=== PATIENT | female | born 1955 | race Caucasian/White ===

== ENCOUNTER 2016-12-24 12:12 | Inpatient (IN) ==
[2016-12-24] MEDS ORDERED: CATAPRES PO PRN (15:55)
[2016-12-24] MEDS ORDERED: SODIUM CHLORIDE 0.9% INJ SCH (16:00)
--- NOTE | 2016-12-24 16:19 | EKG Report ---
Test Performed on : 12/24/2016 3:50:00 PM Test Reason : chest pain Blood Pressure : / mmHG Vent. Rate : 058 BPM Atrial Rate : 058 BPM P-R Int : 166 ms QRS Dur : 096 ms QT Int : 444 ms P-R-T Axes : 062 065 055 degrees QTc Int : 435 ms Sinus bradycardia. Otherwise normal ECG When compared with ECG of 10-JUN-2011 22:10, T wave amplitude has decreased in Anterior leads Confirmed by Jayjay Ahuja MD ([id number]) on 12/25/2016 8:26:24 PM
[2016-12-24] MEDS: LOVENOX SUBQ SCH (16:20)
[2016-12-24] MEDS: NITROGLYCERIN TOP SCH ×2 (16:20→22:06)
[2016-12-24] MEDS: PROTONIX IV SCH (16:20)
[2016-12-24 16:25] LABS: MANUAL DIFF NEEDED? NO
[2016-12-24 16:34] LABS: BASO% 0.7 % (0.0-0.8); EOS# 0.58 X1000 (0.0-0.7); EOS% 5.9 % (0.0-10.0); HEMATOCRIT 44.5 % (37.0-47.0); HEMOGLOBIN 14.8 g/dL (12.0-16.0); LYMPH# 2.85 X1000 (1.2-3.4); LYMPH% 29.1 % (20.5-51.1); MCH 30.4 PG (27-31); MCHC 33.3 g/dL (33-37); MCV 91.4 FL (81-99); MONO# 0.67 X1000 (0.11-0.59); MONO% 6.9 % (1.7-9.3); MPV 9.9 FL (7.4-10.4); NEUT% 57.4 % (42.2-75.2); PLT 424 X1000 (130-400); RBC 4.87 XMIL (4.2-5.4)
[2016-12-24 16:43] LABS: INR 1.02; PROTIME 10.7 Seconds (9.2-11.7)
[2016-12-24 16:47] LABS: AGAP 14; ALBUMIN 4.1 g/dL (3.5-5.0); ALKALINE PHOSPHATASE 88 U/L (32-104); BUN 15 mg/dL (8-22); CALCIUM 9.1 mg/dL (8.8-10.2); CHLORIDE 102 mmol/L (98-107); CK PROFILE 65 U/L (24-173); COSMO 277; GOT 14 U/L (10-30); GPT 14 U/L (10-36); POTASSIUM 3.9 mmol/L (3.5-5.1); SODIUM 139 mmol/L (136-145); TCO2 23 mmol/L (25-35); TOTAL BILIRUBIN 0.31 mg/dL (0.20-1.00); TOTAL PROTEIN 6.7 g/dL (6.3-8.3)
[2016-12-24 16:55] LABS: HEMOGLOBIN A1C 5.2 % (4.8-6.0)
--- NOTE | 2016-12-24 17:13 | HISTORY AND PHYSICAL ---
CHIEF COMPLAINT: Shortness of breath and chest pain for the last few weeks. HISTORY OF PRESENT ILLNESS: She is a 61-year-old white female, who came to the office with 1-week history of off and on exertional chest pain going to the neck associated with shortness of breath. No PND. No swelling of feet. She has strong risk factors of underlying coronary artery disease. Resting EKG in my office did not show any injury or ischemia. Admitted to the hospital for observation rule out FL and rule out ischemic heart disease. PAST MEDICAL HISTORY: Abdominal aneurysm 2.5 cm, diverticulosis, hypertension, hyperlipidemia, reactive thrombocytosis. Negative workup. Chronic back pain due to herniated disk. PAST SURGICAL HISTORY: Hysterectomy, right forearm fracture. MEDICINES: 1. Hydralazine 10 mg daily. 2. Simvastatin 40 mg daily. 3. Vitamin B 12 1000 mcg daily. ALLERGIES: Lisinopril, codeine. SOCIAL HISTORY: , 2 kids, lives in [place]. Smoking half a pack a day. No alcohol. No drug abuse. FAMILY HISTORY: Father of heart failure at 80. Mom of stroke from aneurysm. Two brothers had massive heart attacks. REVIEW OF SYSTEMS: HEENT: No headache. No vision problem. No earache. No sore throat. Neck: No goiter. No lymphadenopathy. No bruit. Cardiopulmonary: Chest pain as described. Exertional. No shortness of breath, PND, orthopnea. GI: No nausea, vomiting, abdominal pain. : No history of hesitancy, frequency, dysuria. No swelling of feet. No joint pains. Neurologic: Chronic back pain. No neurological symptoms or weakness. PHYSICAL EXAMINATION: VITAL SIGNS: Blood pressure is 185/83. Pulse is 78, afebrile and 140 pounds. HEENT EXAM: Atraumatic, normocephalic. Pupils equal, react to light. TMs are normal. Nose and throat within normal limits. NECK: Supple. No lymphadenopathy. No goiter. CHEST: Bilateral air entry. HEART: Sounds are regular. No murmur. Mild reproducible pain, but not significant. ABDOMEN: Belly is soft, nontender. Good bowel sounds. No masses palpable. EXTREMITIES: No peripheral edema, cyanosis. NEUROLOGICAL: No obvious neurological deficits. INVESTIGATIONS: Twelve lead EKG: Nothing acute. Rest of the labs are pending. ASSESSMENT AND PLAN: 1. A 61-year-old white female admitted to the hospital with chest pain, somewhat typical features in light of risk factors, smoking and family history, admitted to the hospital for rule out myocardial infarction and rule out ischemic heart disease. Plan is aspirin, nitroglycerin paste and beta blockers. 2. Follow up on pending labs. 3. Deep vein thrombosis and gastrointestinal prophylaxis with Lovenox and Protonix respectively. 4. Reconcile home medications. Follow up on the pending labs. If cardiac enzymes were negative, we will schedule for the Lexiscan test in the morning. cc: Joe Smalls MD
--- NOTE | 2016-12-24 18:33 | Diag Imaging Result Doc PS360 ---
EXAM: CHEST-2 VIEWS - 12/24/2016 HISTORY: SOB TECHNIQUE: Chest two views COMPARISON: None FINDINGS: Heart size appears within normal limits. There are possibly mild COPD changes. There is mild linear atelectasis or scarring at the lateral left base. There is an apparent tiny granuloma from old granulomatous disease at the right midlung. There is a small triangular opacity at the right apex which may be artifact. There is no consolidation, pleural effusion, or pneumothorax identified. IMPRESSION: Possible mild COPD changes. Mild linear atelectasis or scarring at lateral left base. Small triangular opacity at right apex, which may be artifactual. Electronically signed by Davey Stone 12/24/2016 6:30 PM
[2016-12-24] MEDS: TYLENOL PO PRN (19:25)
[2016-12-24] MEDS ORDERED: ZOCOR PO SCH (21:00)
[2016-12-25] MEDS: NITROGLYCERIN TOP SCH ×3 (05:00→19:36)
[2016-12-25] MEDS: TYLENOL PO PRN (06:53)
[2016-12-25 07:23] LABS: HDL 39 mg/dL (45-65); LDL 125 mg/dL; TRIGLYCERIDES 221 mg/dL (35-135); VLDL 44 mg/dL
[2016-12-25] MEDS ORDERED: LEXISCAN ONE (08:47)
[2016-12-25] MEDS ORDERED: APRESOLINE PO SCH (09:00)
[2016-12-25] MEDS ORDERED: ASPIRIN PO SCH (09:00)
--- NOTE | 2016-12-25 10:44 | ECHO REPORT ---
ORDER DATE: 12/24/2016 INDICATION: Embolism, hypertension. FINDINGS: 1. Right atrium is normal in size. 2. Mild tricuspid regurgitation. Insufficient data to estimate RV systolic pressure. 3. Normal RV size and systolic function. 4. Trace pulmonic insufficiency. 5. Normal left atrial size at 3.4 cm. 6. No mitral valve prolapse. No significant mitral regurgitation. 7. Normal LV size, end-diastolic dimension of 3.5. Normal wall thicknesses with a posterior and interventricular septal thickness of 1.1 cm each. Normal LV systolic function. Calculated EF 67%. 8. The aortic valve opens well. No evidence of stenosis or insufficiency. 9. The aorta appears normal in visualized segments. 10. No pericardial effusion seen. cc: MD Joe Lange MD
[2016-12-25 15:47] VITALS: BP 158/68
[2016-12-25] MEDS: LOVENOX SUBQ SCH (16:00)
[2016-12-25] MEDS: PROTONIX IV SCH (16:00)
--- NOTE | 2016-12-25 19:34 | Diag Imaging Result Document ---
PROCEDURE NAME: MYOCARDIAL PERF SCAN, STR/REST - 12/25/2016 STUDY: Rest-stress Lexiscan myocardial perfusion study. INDICATION: Chest pain. REQUESTING PHYSICIAN: Dr. Smalls. DESCRIPTION: The patient came into the Nuclear Lab, received a rest injection of technetium 99 sestamibi 10.5 millicuries. Multiple tomographic views of the cardiac structure were obtained at rest. Subsequently the patient underwent infusion of Lexiscan 0.4 mg per protocol. At peak infusion, injected with technetium 99 sestamibi 31 millicuries. Multiple tomographic views of the cardiac structure were obtained following the completion of the protocol. SUMMARY OF ELECTROCARDIOGRAPHIC PORTION OF STUDY: Resting ECG shows sinus rhythm, rate 59 beats per minute. Resting blood pressure 148/67. Resting ECG shows sinus rhythm without any significant ST-T abnormality. During infusion of Lexiscan, the heart rate increased to 84 beats per minute. Blood pressure dropped to 137/69. The patient reported mild chest tightness that resolved by itself. No shortness of breath or palpitations. No significant arrhythmias were noted. No ischemic changes were noted. IMPRESSION: In summary, the electrocardiographic response to Lexiscan is normal. SUMMARY OF MYOCARDIAL PERFUSION PORTION OF STUDY: Poststress tomographic views of the left ventricle showed normal homogeneous distribution of radiotracer throughout the entire left ventricular myocardium. There is no evidence of any postexercise defect. Rest images show normal perfusion. Polar plots reveals the same. No evidence of inducible ischemia or myocardial scar. Gated SPECT showed normal left ventricular systolic function. Ejection fraction estimated at 89% with normal ventricular volumes. No wall motion abnormality. Lung-heart ratio is normal. TID is normal. IMPRESSION: In summary, this study showed: 1. Normal electrocardiographic response to Lexiscan infusion. 2. Normal poststress myocardial perfusion scan. No scintigraphic evidence of pharmacologically induced myocardial ischemia. 3. Normal left ventricular systolic function. Ejection fraction estimated at 89% with normal ventricular volumes. No wall motion abnormality. This study represents low risk for ischemic events. cc: MD Joe Leos MD
--- NOTE | 2016-12-26 14:55 | DISCHARGE SUMMARY ---
ADMISSION DATE: 12/24/2016 DISCHARGE DATE: 12/25/2016 DISCHARGING DIAGNOSIS: Chest pain, atypical. Stress test was negative. SECONDARY DIAGNOSES: 1. Hyperlipidemia. 2. Hypertension. 3. Tobacco abuse. 4. Vitamin B12 deficiency. 5. Diverticulosis. PROCEDURES: 1. Cardiac perfusion scan is negative for reversible ischemia. 2. Echocardiography findings are normal LV cavity size, LV systolic function 60%, no significant valvular heart disease seen. BRIEF HISTORY: Please see the H and P that was done on 12/24/2016. In brief, she is a 61-year- old white female, admitted to the hospital with chest pain, exertional and somewhat atypical features as well. Significant family history of heart disease and smoking. HOSPITAL COURSE: Resting EKG is normal. The patient was ruled out for SC by serial cardiac enzymes. Further workup findings were reassuring. Continue to maintain the primary prevention for atherosclerotic cardiovascular disease in the future. LABORATORY DATA: CBC is normal. PT/INR is normal. SMA-7 was normal. A1c 5.2. Liver function tests were normal. Cardiac enzymes were normal. Triglycerides 221, cholesterol 208, HDL 39. DISCHARGE MEDICATIONS: Hydralazine 10 mg daily, simvastatin 40 daily, Prilosec 40 daily, aspirin 81 mg daily. DISCHARGE INSTRUCTIONS: Quit smoking. Follow up in my office in 2 weeks. cc: Joe Smalls MD
== END 2016-12-25 21:30 | disposition home or self-care (01) ==
LOC: DIRADM 12:12 → 3N 12:58
PROVIDERS: ADMIT Internal Medicine; ATTEND Internal Medicine

== ENCOUNTER 2018-07-28 08:41 | Observation (INO) ==
--- NOTE | 2018-07-28 09:11 | EKG Report ---
Test Performed on : 07/28/2018 08:42:42 AM Test Reason : chest pain Blood Pressure : / mmHG Vent. Rate : 073 BPM Atrial Rate : 073 BPM P-R Int : 154 ms QRS Dur : 096 ms QT Int : 402 ms P-R-T Axes : 061 074 056 degrees QTc Int : 442 ms Normal sinus rhythm. Normal ECG When compared with ECG of 24-DEC-2016 15:50, No significant change was found Unconfirmed Result
[2018-07-28] MEDS ORDERED: NITROGLYCERIN TOP ONE (09:17)
--- NOTE | 2018-07-28 09:17 | PROVIDER DOCUMENTATION ---
HPI-Chest Pain - General Chief Complaint: Chest Pain Stated Complaint: CP Time Seen by Provider: 07/28/18 08:46 Source: patient Allergies/Adverse Reactions: Patient Allergies Allergy/AdvReac Type Severity Reaction Status Date / Time codeine Allergy pass out Verified 07/28/18 09:01 lisinopril Allergy Unknown Verified 07/28/18 09:01 Home Medications: Home Medication List Medication Instructions Recorded Confirmed Last Taken Type Hydralazine [Apresoline] 50 mg PO BID 06/30/14 07/28/18 12/23/16 21:00 History SIMVAstatin [Zocor] 40 mg PO QHS 06/30/14 07/28/18 12/23/16 21:00 History Aspirin [Adult Low Dose Aspirin EC] 81 mg PO DAILY #30 tablet. 12/25/16 07/28/18 Unknown Rx Omeprazole [Prilosec] 40 mg PO DAILY #30 capsule. 12/25/16 07/28/18 Unknown Rx Cilostazol 50 mg PO BID 07/28/18 07/28/18 Unknown History - History of Present Illness-CP Nature of Presenting Problem: pt says has had intermittent palpitations, KHOURY, and bilat jaw pain for sev mos, This am, ~0630, as was getting grandchild ready for school, has pressure ant CP, that rad to L shoulder, arm, jaws, assoc with SOB, nausea. Nothing made better nor worse. Also has hx of "bulge" in abd aorta. Location: reports: substernal Chest Pain Radiation: reports: jaw, arms Quality of Pain: reports: aching, pressure Onset/Duration: abrupt Timing: improving Context/Activities at Onset: reports: light activity Modifying Factors: improves with: nothing Nitro Today/Relief: no nitro taken today Aspirin Treatment Today: provided by EMS Similar Symptoms Previously?: No (not the CP) Recently Seen Here or By Another Healthcare Provider: No (saw PCP last week) Review of Systems - Adult - REVIEW OF SYSTEMS - ADULT Constitutional: reports: no symptoms reported Eyes: reports: no symptoms reported Ears, Nose, Mouth & Throat: reports: no symptoms reported Cardiovascular: reports: see HPI Respiratory: reports: see HPI Gastrointestinal: reports: see HPI Musculoskeletal: reports: no symptoms reported Integumentary: reports: no symptoms reported Neurological: reports: no symptoms reported Psychiatric: reports: no symptoms reported Endocrine: reports: no symptoms reported Hematologic/Lymphatic: reports: no symptoms reported Allergic/Immunologic: reports: no symptoms reported Past History - Adult - PAST MEDICAL HISTORY-ADULT Review of Records: reports: Old Records Reviewed, Medications Reviewed Major Childhood Illnesses: reports: denies history Cardiovascular: reports: HTN, hyperlipidemia Respiratory: reports: COPD Gastrointestinal: reports: denies history Genitourinary: reports: denies history Musculoskeletal: reports: denies history Neurological: reports: denies history Psychiatric: reports: denies history Endocrine/Immune: reports: denies history Additional History: mild bulge in distal abd aorta Physical Exam-General - PHYSICAL EXAM-ADULT Initial Vital Signs Reviewed: Yes - CONSTITUTIONAL General Appearance: appears well, alert, mild distress - EYES Eyes: PERRL/EOMI, pink conjunctivae - HEAD, EARS, NOSE, MOUTH & THROAT HENMT: normocephalic/atraumatic, moist mucous membranes, normal ENT inspection, pharynx normal - RESPIRATORY Respiratory: lungs clear, normal breath sounds, no respiratory distress, no accessory muscle use - CARDIOVASCULAR Cardiovascular: regular rate, rhythm, no edema, no gallop, no murmur - GASTROINTESTINAL (ABDOMEN) Abdominal Exam: non tender, soft - MUSCULOSKELETAL Back Exam: normal inspection, no CVA tenderness, no vertebral tenderness Extremity: normal range of motion, non-tender, normal inspection, no pedal edema - SKIN Integumentary: normal color, normal turgor, warm/dry - NEUROLOGIC Neurologic: volunteer coordinator II-XII nml as tested, grossly normal, no motor/sensory deficits - PSYCHIATRIC Psych/Mental Status: normal mood/affect, normal thought content, normal thought process, oriented x 3 - HEART Score HEART Score: History: Highly Suspicious HEART Score: ECG: Normal HEART Score: Age: 45-65 Years HEART Score: Risk Factors for Atherosclerotic Disease: > or = 3 Risk Factors or History of Atherosclerotic Disease HEART Score: Troponin: < or = Normal Limit Total HEART Score:: 5 Progress - PLAN OF CARE/RESULTS Progress/Plan/Lab Results: Vital Signs - 8 hr 07/28/18 08:50 07/28/18 08:51 07/28/18 08:53 Temperature 97.7 F Pulse Rate 72 83 73 Respiratory Rate 18 18 16 Blood Pressure 160/89 160/89 O2 Sat by Pulse Oximetry 95 96 96 07/28/18 09:00 07/28/18 09:10 07/28/18 09:25 Temperature Pulse Rate 75 79 72 Respiratory Rate 20 14 23 Blood Pressure O2 Sat by Pulse Oximetry 96 96 96 07/28/18 09:26 07/28/18 09:30 07/28/18 09:40 Temperature Pulse Rate 72 70 76 Respiratory Rate 20 16 18 Blood Pressure 164/80 O2 Sat by Pulse Oximetry 97 96 95 07/28/18 09:50 07/28/18 10:00 07/28/18 10:10 Temperature Pulse Rate 91 H 69 69 Respiratory Rate 20 24 18 Blood Pressure O2 Sat by Pulse Oximetry 94 L 95 95 07/28/18 10:20 07/28/18 10:25 07/28/18 10:30 Temperature 97.5 F L Pulse Rate 70 68 72 Respiratory Rate 15 22 21 Blood Pressure 147/77 O2 Sat by Pulse Oximetry 95 94 L 93 L 07/28/18 10:40 07/28/18 11:47 07/28/18 11:50 Temperature Pulse Rate 72 91 H 69 Respiratory Rate 18 24 20 Blood Pressure O2 Sat by Pulse Oximetry 95 97 95 07/28/18 12:00 Temperature Pulse Rate 75 Respiratory Rate 15 Blood Pressure O2 Sat by Pulse Oximetry 96 Laboratory Results - last 24 hr 07/28/18 07/28/18 07/28/18 08:59 08:59 08:59 WBC 10.43 RBC 4.90 Hgb 14.4 Hct 43.3 MCV 88.4 MCH 29.4 MCHC 33.3 RDW Std Deviation 13.7 Plt Count 452 H MPV 9.7 Immature Gran % (Auto) 0.3 Neut % (Auto) 66.6 Lymph % (Auto) 19.9 L [place] % (Auto) 6.2 Eos % (Auto) 6.1 Baso % (Auto) 0.9 H Immature Gran # (Auto) 0.03 Neut # (Auto) 6.94 H Lymph # (Auto) 2.08 Eagle # (Auto) 0.65 H Eos # (Auto) 0.64 Baso # (Auto) 0.09 PT INR PTT (Actin FS) D-Dimer, Quantitative Sodium 140 Potassium 3.9 Chloride 106 Carbon Dioxide 21 L Anion Gap 13 BUN 10 Creatinine 0.8 Estimated GFR/1.73 m2 > 60 BUN/Creatinine Ratio 13 Glucose 121 H Calculated Osmolality 280 Calcium 9.2 Total Bilirubin 0.18 L AST 11 ALT 9 L Alkaline Phosphatase 98 Creatine Kinase 77 Troponin T [id number]-Ytuayldfezc Pept 80 Total Protein 6.6 Albumin 4.0 Globulin 2.6 Albumin/Globulin Ratio 1.5 07/28/18 07/28/18 07/28/18 08:59 08:59 08:59 WBC RBC Hgb Hct MCV MCH MCHC RDW Std Deviation Plt Count MPV Immature Gran % (Auto) Neut % (Auto) Lymph % (Auto) Eagle % (Auto) Eos % (Auto) Baso % (Auto) Immature Gran # (Auto) Neut # (Auto) Lymph # (Auto) [place] # (Auto) Eos # (Auto) Baso # (Auto) PT 13.8 INR 0.98 PTT (Actin FS) 31.4 D-Dimer, Quantitative 0.85 H Sodium Potassium Chloride Carbon Dioxide Anion Gap BUN Creatinine Estimated GFR/1.73 m2 BUN/Creatinine Ratio Glucose Calculated Osmolality Calcium Total Bilirubin AST ALT Alkaline Phosphatase Creatine Kinase Troponin T 0.014 [id number]-F-Dvruhyhnuvf Pept Total Protein Albumin Globulin Albumin/Globulin Ratio Orders Category Date Time Status Cardiac Monitoring DIRECTED Care 07/28/18 09:03 Active CHEST-2 VIEWS [RAD] Stat Exams 07/28/18 09:[address] ANGIOGRM PULMONARY ARTERIES [CT] Stat Exams 07/28/18 10:12 Completed CBC WITH ELECTRONIC DIFF [HEME] Stat Lab 07/28/18 08:59 Completed CK PROFILE [SP CHEM] Stat Lab 07/28/18 08:59 Completed CK PROFILE [SP CHEM] Stat Lab 07/28/18 11:55 Received COMPREHENSIVE METABOLIC PANEL [CHEM] Stat Lab 07/28/18 08:59 Completed D-DIMER [COAG] Stat Lab 07/28/18 08:59 Completed PRO B-NATRIURETIC PEPTIDE Stat Lab 07/28/18 08:59 Completed PROTIME WITH INR [COAG] Stat Lab 07/28/18 08:59 Completed PTT [COAG] Stat Lab 07/28/18 08:59 Completed TROPONIN T Stat Lab 07/28/18 08:59 Completed TROPONIN T Stat Lab 07/28/18 11:55 Received Nitroglycerin Med 07/28/18 09:17 Discontinued 1 inch TOP NOW ONE CP/SOB/Palp >45 yrs of Age Stat Oth 07/28/18 09:03 Ordered EKG [EKG] Stat Ther 07/28/18 09:03 Draft Old records reviewed, has had cardiac W/U in 2017, and prev CT shows the aortic bulge Result Diagrams: 07/28/18 08:59 07/28/18 08:59 - EKG 1 Time of EKG reading by physician:: 08:45 EKG Read and Signed by:: Evaristo Yen EKG Interpretation (*Must complete 3 of following elements*): Normal Rate: 73 Rhythm: NSR [place]: normal QRS: normal ST Wave: normal 2 Time of EKG reading by physician:: 11:55 EKG Read and Signed by:: Evaristo Yen EKG Interpretation (*Must complete 3 of following elements*): Normal Rate: 75 Rhythm: NSR [place]: normal QRS: normal ST Wave: normal - XRAY 1 XRAY Study: Chest Impression: Abnormal XRAY Interpretation: emphysema - CONSULTS/PCP/HOSPITALIST Notification #1 *Consult/PCP/Hospitalist*: Slim Time Discussed: 11:31 Consult Disposition: Admit Departure - Departure Date of Disposition Decision: 07/28/18 Time of Disposition Decision: 09:23 DIAGNOSIS: Chest pain Disposition: ADMITTED INPATIENT 09 Certified Medical Emergency: Emergent Condition: Good Referrals and Follow-Ups: Latoya Smalls MD [Primary Care Provider] - - Critical Care Note This patient required my direct & personal management of CC.: No Attestation - Physician/ YOCASTA Attestation Patient care was provided by Advanced Practice Provider:: No The physician spent face to face time with patient:: Yes Advanced Practice Provider documentation review:: Supervising physician onsite and consulted in the evaluation and care of this patient. The physician did have a face to face encounter with the patient.
[2018-07-28 09:25] LABS: BASO# 0.09 X1000 (0.0-0.2); BASO% 0.9 % (0.0-0.8); EOS# 0.64 X1000 (0.0-0.7); EOS% 6.1 % (0.0-10.0); HEMATOCRIT 43.3 % (37.0-47.0); HEMOGLOBIN 14.4 g/dL (12.0-16.0); IMM GRAN# 0.03 X1000 (0.0-0.04); IMM GRAN% 0.3 % (0.0-0.5); LYMPH# 2.08 X1000 (1.2-3.4); LYMPH% 19.9 % (20.5-51.1); MCH 29.4 PG (27-31); MCHC 33.3 g/dL (33-37); MCV 88.4 FL (81-99); MONO# 0.65 X1000 (0.11-0.59); MONO% 6.2 % (1.7-9.3); MPV 9.7 FL (7.4-10.4); NEUT# 6.94 X1000 (1.4-6.5); NEUT% 66.6 % (42.2-75.2); PLT 452 X1000 (130-400); RDW 13.7 % (11.5-14.5); WBC 10.43 X1000 (4.8-10.8)
--- NOTE | 2018-07-28 09:31 | Diag Imaging Result Doc PS360 ---
EXAM: CHEST-2 VIEWS HISTORY: chest pain TECHNIQUE: Chest two views COMPARISON: 12/24/2016 FINDINGS: The lungs are hyperexpanded. The heart is not enlarged. The vessels are small. There are no infiltrates. No pleural effusions. There are scattered granuloma. IMPRESSION: Emphysema Electronically signed by Jordan 07/28/2018 9:29 AM
[2018-07-28 09:34] LABS: INR 0.98; PROTIME 13.8 Seconds (11.0-16.0)
[2018-07-28 09:35] LABS: PTT 31.4 Seconds (22.3-41.8)
[2018-07-28 09:37] LABS: AGAP 13; ALB/GLOB RATIO 1.5; ALKALINE PHOSPHATASE 98 U/L (32-104); BUN 10 mg/dL (8-22); CALCIUM 9.2 mg/dL (8.8-10.2); CHLORIDE 106 mmol/L (98-107); CK PROFILE 77 U/L (24-173); COSMO 280; CREATININE 0.8 mg/dL (0.5-0.9); ESTIMATED GFR > 60; GLUCOSE 121 mg/dL (70-104); GOT 11 U/L (10-30); GPT 9 U/L (10-36); POTASSIUM 3.9 mmol/L (3.5-5.1); SODIUM 140 mmol/L (136-145); TCO2 21 mmol/L (25-35); TOTAL BILIRUBIN 0.18 mg/dL (0.20-1.00); TOTAL PROTEIN 6.6 g/dL (6.3-8.3)
--- NOTE | 2018-07-28 11:57 | Diag Imaging Result Doc PS360 ---
EXAM: CT ANGIOGRM PULMONARY ARTERIES INDICATION: CP, elev dimer TECHNIQUE: This exam was performed using automated exposure control, adjustment of mA or kV according to patient size, and/or use of iterative reconstruction technique. Thin section axial images and 3-D MIPS were obtained. COMPARISON: None. FINDINGS: There is some motion artifact at the lung bases, which limits sensitivity at the distal pulmonary artery branches at the bases. There is diminished opacification of a couple of tiny pulmonary artery branches of the right lung base. However, this is probably due to motion artifact. I suppose a tiny embolus cannot completely be excluded. No other filling defects are identified to indicate pulmonary embolism. There is extensive aortoiliac atherosclerotic disease. There is no evidence of thoracic aortic aneurysm or dissection. There are calcified mediastinal lymph nodes indicating prior granulomatous disease. There is no cardiomegaly. There are a few calcified granulomata in the right lung. There is mild subsegmental atelectasis at the lung bases. There is no pleural fluid collection and no pneumothorax. Limited views of the upper abdomen are essentially unremarkable. IMPRESSION: 1.Motion artifact at the lung bases limits sensitivity. However, there is limited opacification of a couple of distal branches of the right pulmonary artery at the right lung base. This may be due to motion artifact. A tiny distal pulmonary embolus is difficult to completely exclude, however. 2.Mild subsegmental atelectasis at the lung bases. 3.Other incidental/nonacute findings detailed above. Electronically signed by Saul Contreras 07/28/2018 11:55 AM
[2018-07-28] MEDS ORDERED: NS 1,000 ML IV ONE (13:02)
[2018-07-28] MEDS ORDERED: ZOFRAN IV PRN (13:02)
[2018-07-28] MEDS ORDERED: LOVENOX SUBQ SCH (14:00)
[2018-07-28] MEDS ORDERED: MORPHINE IV PRN (14:16)
[2018-07-28] MEDS: LOVENOX SUBQ SCH (14:23)
[2018-07-28] MEDS: LOPRESSOR PO SCH ×2 (14:23→20:50)
[2018-07-28] MEDS: NITROGLYCERIN TOP SCH ×2 (14:48→20:50)
--- NOTE | 2018-07-28 15:43 | ECHO REPORT ---
ORDER DATE: 07/28/2018 INTERPRETING PHYSICIAN: Melchor Lopez MD ECHOCARDIOGRAPHIC MEASUREMENTS: 1. Interventricular septum 1.0 cm. 2. Left ventricular posterior wall 1.1 cm. 3. Diastolic diameter 4.6 cm. 4. Left atrium 3.3 cm. 5. Aorta 3.1 cm. SUMMARY: 1. Aortic valve leaflets are sclerosed, trileaflet, opening normally. 2. Pulmonic valve was normal. 3. Tricuspid valve was normal. 4. Mitral valve was normal. 5. Normal left ventricular cavity size. 6. Estimated ejection fraction of 65%. 7. There is mild mitral regurgitation. 8. Mild tricuspid regurgitation. 9. Peak velocity across the tricuspid valve was 2.2 m/sec. 10. Pulmonary artery systolic pressure of 30 mmHg. 11. Peak velocity across the aortic valve less than 2 m/sec. 12. There is no aortic stenosis or regurgitation. 13. There is diastolic dysfunction. 14. There is no pericardial effusion or obvious intracardiac mass or thrombus seen. cc: MD Joe Fall MD
--- NOTE | 2018-07-28 15:45 | EKG Report ---
Test Performed on : 07/28/2018 12:01:24 PM Test Reason : ED. NO ORDER IN [place] Blood Pressure : / mmHG Vent. Rate : 075 BPM Atrial Rate : 075 BPM P-R Int : 146 ms QRS Dur : 092 ms QT Int : 422 ms P-R-T Axes : 054 074 044 degrees QTc Int : 471 ms Normal sinus rhythm. Normal ECG When compared with ECG of 28-JUL-2018 08:42, (Unconfirmed) No significant change was found Unconfirmed Result
--- NOTE | 2018-07-28 16:14 | EKG Report ---
Test Performed on : 07/28/2018 4:00:41 PM Test Reason : acute [place] Blood Pressure : / mmHG Vent. Rate : 055 BPM Atrial Rate : 055 BPM P-R Int : 168 ms QRS Dur : 098 ms QT Int : 452 ms P-R-T Axes : 066 060 070 degrees QTc Int : 432 ms Sinus bradycardia. Otherwise normal ECG When compared with ECG of 28-JUL-2018 12:01, (Unconfirmed) No significant change was found Confirmed by Butch NARVAEZ, Smith Duvall ([id number]) on 07/30/2018 8:45:20 AM
--- NOTE | 2018-07-28 16:31 | CARDIOLOGY CONSULTATION ---
DATE: 07/28/2018 REQUESTING PHYSICIAN: This is a consultation requested by Dr. Smalls. REASON FOR CONSULTATION: The reason is chest pain, possible myocardial infarction. HISTORY: Ms. Temple is a 62-year-old female, who presented to the emergency room department early today, I believe at about 9 o'clock in the morning, with complaints of sudden onset of discomfort in the chest that started just before leaving to the school to drop her grandchildren. The patient said that the pain started in the jaw. It radiated down to the substernal area of the chest. It went on for a while, and it was very intense from the get go. Upon arrival to the emergency room, she was given some aspirin and nitroglycerin, and they started checking her troponin levels. Her 1st troponin was 0.014 which is already abnormal. The next one was 0.310 which is positive. Her EKG shows a pattern of sinus rhythm with a questionable Q-wave in the inferior leads. I am seeing her at about 3:30 p.m., and her pain has decreased to 2/10 in intensity. She is feeling more comfortable. Family is at the bedside. The patient states that over the course of the past year she has had intermittent bouts of chest discomfort. This is really the worst that she has had. PAST HISTORY: Positive for hypertension uncontrolled in the past, hyperlipidemia. She has been diagnosed with a small abdominal aortic aneurysm. She has diverticulosis, and she has chronic back pain. SURGICAL HISTORY: She had hysterectomy. SOCIAL HISTORY: She is for 46 years. She has 2 grownup children. She has been a smoker of half a pack a day for 30 years. She continues to smoke to this date. FAMILY HISTORY: Two brothers had myocardial infarction. Father had CHF. Mother had a stroke and aneurysm. HOME MEDICATIONS: At time of this admission included aspirin 81 daily, Cilostazol 50 twice a day, hydralazine 50 twice a day, omeprazole 40 mg daily, simvastatin 40 at bedtime. ALLERGIES: Codeine and lisinopril. REVIEW OF SYSTEMS: Other than what I described about the chest discomfort, nothing remarkable. PHYSICAL EXAMINATION: Blood pressure 157/78, temperature 98.4 degrees, pulse 63, respirations 18. she is awake, alert, oriented, in no distress.HEENT: Unremarkable. Chest: Diminished breath sounds diffusely. Heart sounds are regular and rhythmic. I do not hear a gallop or murmur. Her abdomen is nontender, soft, no masses. No hepatomegaly. Extremities showed actually good pulses and no peripheral edema. Neurological: Follows commands. Moves all 4 extremities. DIAGNOSTIC STUDIES: Her blood work: Sodium 140, potassium 3.9, BUN 10, creatinine 0.8. Hemoglobin 14.4, hematocrit 43.3. IMPRESSION: 1. Patient who presented to the hospital with new onset of chest pain, unstable angina like ,who according to troponin measurements is ruling in for acute myocardial infarction, [id number]. 2. Evidence of atherosclerotic disease involving the aorta with abdominal aortic aneurysm. 3. Heavy tobacco abuser. 4. History of hypertension. 5. History of hyperlipidemia. RECOMMENDATION: The patient is strongly advised to quit smoking immediately. I had a lengthy conversation with her and told her that the smoking would wipe out all the potential benefits of all the other interventions. We will keep her on atorvastatin as best drug to lower her LDL cholesterol. We will keep her on aspirin and beta blockers. We will put her on enoxaparin 1 mg/kg twice a day. We will arrange for a coronary arteriography with possible intervention to [facility]. The patient is going to require probably right upper extremity approach since she has extensive atherosclerotic plaque in the thoracic descending aorta and abdominal aortic, which may increase her risk for cholesterol emboli if a femoral approach is carried out. The patient understands and requests to proceed. We will try to get her to [facility] first in the morning. I have already contacted the [facility] coordinator this afternoon. cc: MD Joe Leos MD MTDD
[2018-07-28] MEDS ORDERED: TYLENOL PO PRN (18:03)
[2018-07-28] MEDS ORDERED: AMBIEN PO PRN (18:04)
--- NOTE | 2018-07-28 20:35 | HISTORY AND PHYSICAL ---
CHIEF COMPLAINT: Chest pain, woke up, radiating to the jaw. 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 As a result, she came to the emergency room. Initial EKG was unremarkable, and initial cardiac enzymes were negative. Second set of cardiac enzymes was positive. The patient denies of any shortness of breath, PND, orthopnea, swelling of feet, syncope, dizziness. Basically, patient ruled in nonQ NV. Prior stress test in 2016 was negative, and basically admitted in [facility] for further workup. I spoke to Dr. Saldivar. The patient was seen in my office a week ago. PAST MEDICAL HISTORY: 1. Diverticulosis. 2. Hyperlipidemia. 3. Hypertension. 4. Chronic back pain due to herniated disk. 5. Peripheral arterial disease. TRAN 0.7 on both sides. 6. History of thrombocytosis. 7. Bone marrow biopsy was negative in June 2014. PAST SURGICAL HISTORY: 1. Right forearm fracture. 2. Hysterectomy. MEDICINES: 1. Pletal 50 p.o. b.i.d. 2. Hydralazine 50 p.o. b.i.d. 3. Aspirin. 4. Simvastatin 40 mg once daily. ALLERGIES: Codeine, lisinopril for cough. SOCIAL HISTORY: , 2 kids. Lives in [place]. No alcohol. No drug abuse. Smoking half a pack a day. FAMILY HISTORY: Father of heart failure at 80. Mom of stroke from aneurysm at 63. Significant family history of siblings with heart disease. REVIEW OF SYSTEMS: HEENT: Slight headache from nitroglycerin paste. No vision problem. No neck pain. Cardiopulmonary: Chest pain, radiating to the neck, painfree, dull discomfort. No shortness of breath, PND, orthopnea. GI: No nausea, vomiting, abdominal pain. : No history of dysuria, hesitancy, frequency, and no swelling of legs. Neurological: No neurological symptoms or weakness. PHYSICAL EXAMINATION: VITAL SIGNS: Temperature is 98.4 degrees, pulse 63, blood pressure 157/78, height 5 feet 2 inches, weight 148 pounds. HEENT: Atraumatic, normocephalic. Pupils equal, react to light. Tongue is in the midline. NECK: Supple. No lymphadenopathy. No bruit. CHEST: Bilateral air entry. HEART: Sounds are regular. No murmurs. No gallop. ABDOMEN: Belly is soft, nontender. Good bowel sounds. EXTREMITIES: No peripheral edema, cyanosis. NEUROLOGICAL: No neurological deficits. INVESTIGATIONS: CBC: White cell count 10, hematocrit 43, platelets 452,000. PT 13, INR 0.98. D- dimer 0.85. SMA-7: Sodium 140, potassium 3.9, chloride 106, BUN 10, creatinine 0.8, glucose 120. CK was 95, troponin slightly positive. ProBNP was normal. EKG: Normal sinus, nothing acute. Echocardiography findings: EF is 65%. No wall motion abnormalities noted. No diastolic dysfunction. No significant valvular heart disease seen. Positive D-dimer. CT showed no definitive PE noted, atelectasis in the lung base. Chest x-ray: Emphysema. ASSESSMENT AND PLAN: A 62-year-old white female came in with: 1. Chest pain, ruled in non-Q myocardial infarction, and currently pain-free. Basically, on Lovenox 70 mg q.12, aspirin, metoprolol. 2. Hyperlipidemia. Lipitor 80 mg, morphine for p.r.n. pain. 3. Headache due to nitroglycerin paste. Tylenol. 4. Acid reflux disease, on Prilosec. 5. Ambien for sleep. 6. Obviously, Dr. Saldivar was consulted and he is planning to do a percutaneous coronary intervention in [facility]. Arrangements were made for tomorrow morning. Continue n.p.o. after midnight. Will follow up. cc: Joe Smalls MD
[2018-07-28] MEDS ORDERED: LIPITOR PO SCH (21:00)
[2018-07-28] MEDS ORDERED: PLETAL PO SCH (21:00)
[2018-07-29] MEDS: LOPRESSOR PO SCH (01:22)
[2018-07-29] MEDS: NITROGLYCERIN TOP SCH (01:22)
[2018-07-29] MEDS: LOVENOX SUBQ SCH (01:44)
[2018-07-29 02:25] LABS: BASO# 0.07 X1000 (0.0-0.2); BASO% 0.7 % (0.0-0.8); EOS# 0.68 X1000 (0.0-0.7); EOS% 6.3 % (0.0-10.0); HEMOGLOBIN 12.5 g/dL (12.0-16.0); IMM GRAN# 0.03 X1000 (0.0-0.04); IMM GRAN% 0.3 % (0.0-0.5); LYMPH# 3.35 X1000 (1.2-3.4); LYMPH% 31.3 % (20.5-51.1); MCH 29.4 PG (27-31); MCHC 32.9 g/dL (33-37); MCV 89.4 FL (81-99); MONO# 0.95 X1000 (0.11-0.59); MONO% 8.9 % (1.7-9.3); MPV 9.4 FL (7.4-10.4); NEUT# 5.63 X1000 (1.4-6.5); NEUT% 52.5 % (42.2-75.2); PLT 416 X1000 (130-400); RBC 4.25 XMIL (4.2-5.4); RDW 13.7 % (11.5-14.5); WBC 10.71 X1000 (4.8-10.8)
[2018-07-29 02:58] LABS: AGAP 8; BUN 8 mg/dL (8-22); CALCIUM 8.3 mg/dL (8.8-10.2); CHLORIDE 110 mmol/L (98-107); CHOLESTEROL 134 mg/dL (0-200); COSMO 280; CREATININE 0.8 mg/dL (0.5-0.9); ESTIMATED GFR > 60; GLUCOSE 98 mg/dL (70-104); HDL 40 mg/dL (45-65); LDL 60 mg/dL; POTASSIUM 3.9 mmol/L (3.5-5.1); SODIUM 141 mmol/L (136-145); TCO2 23 mmol/L (25-35); TRIGLYCERIDES 168 mg/dL (35-135); VLDL 34 mg/dL
[2018-07-29 06:46] VITALS: BP 124/58
--- NOTE | 2018-07-29 07:08 | EKG Report ---
Test Performed on : 07/29/2018 06:20:39 AM Test Reason : acute ND Blood Pressure : / mmHG Vent. Rate : 059 BPM Atrial Rate : 059 BPM P-R Int : 158 ms QRS Dur : 096 ms QT Int : 486 ms P-R-T Axes : 065 069 024 degrees QTc Int : [address] & T wave abnormality, consider inferolateral ischemia Prolonged QT Abnormal ECG When compared with ECG of 28-JUL-2018 16:00, (Unconfirmed) T wave inversion now evident in Inferior leads T wave inversion now evident in Anterolateral leads QT has lengthened Confirmed by Butch NARVAEZ, Smith Duvall ([id number]) on 07/30/2018 8:45:53 AM
[2018-07-29] MEDS ORDERED: ASPIRIN EC PO SCH (09:00)
[2018-07-29] MEDS ORDERED: ASPIRIN PO SCH ×2 (09:00)
[2018-07-29] MEDS ORDERED: PRILOSEC PO SCH (09:00)
--- NOTE | 2018-07-31 06:06 | DISCHARGE SUMMARY ---
ADMISSION DATE: 07/28/2018 DISCHARGE DATE: 07/29/2018 DISCHARGING DIAGNOSIS: Non-Q myocardial infarction. SECONDARY DIAGNOSES: 1. Diverticulosis. 2. Hyperlipidemia. 3. Hypertension. 4. Chronic back pain due to herniated disk. 5. Peripheral arterial disease. Ankle brachial index 0.7 on both sides. CONSULTS: Dr. Saldivar. BRIEF HISTORY: Please see the H and P that was done on 07/28/2018. In brief, she is a 62-year- old white female who came to the ER with chest pain going to the neck. Prior stress test was negative in 2017. She was recently diagnosed with peripheral arterial disease in both legs relegated to medical management. Initial EKG was unremarkable. Subsequent troponin was positive. Repeat EKG showed T-wave inversions in the inferior leads and the lateral leads. The patient did rule in non-Q myocardial infarction. The patient was given aspirin, beta blockers, morphine, Lovenox and transferred to [facility] for percutaneous coronary intervention. LABS: CBC: White cell count 10, hematocrit 38, platelets 416,000. Sodium 140, potassium 3.9, chloride 110, BUN 8, creatinine 0.8, glucose 8.3. Cholesterol 134, triglycerides 168, LDL 60. RADIOLOGICAL PROCEDURES: Echocardiography findings: The ejection fraction 65%. No significant valvular heart disease seen. CT pulmonary angiogram: No definite to pulmonary embolism noted. Chest x-ray: Emphysema. DISPOSITION: The patient has been transferred to [facility]. MEDICATION: Simvastatin 40 daily, Prilosec 40 daily, aspirin 81 mg daily, Pletal 50 p.o. b.i.d. INSTRUCTIONS: Continue ACLS protocol en route to [facility] and follow up as an outpatient. cc: Joe Smalls MD
== END 2018-07-29 07:21 | disposition short-term general hospital (02) ==
LOC: SUPCPDRO → ED 08:41 → 4N 08:41 → 3S 14:42
PROVIDERS: ADMIT Internal Medicine; ATTEND Internal Medicine
CPT/HCPCS: 71020; 71046; 71275; 80048; 80053; 80061; 82550; 83880; 84484; 85025; 85379; 85610; 85730; 93005; 93010; 93306; 93308; 99285; A9270; C8924; J1650; J7030; Q9957; Q9967

== ENCOUNTER 2019-03-05 08:46 | Inpatient (IN) ==
[2019-03-05 09:17] LABS: URINE SOURCE CLEAN CATCH
[2019-03-05 09:25] LABS: BILIRUBIN URINE NEGATIVE (NEGATIVE); CLARITY SLIGHTLY CLOUDY (CLEAR); COLOR YELLOW; GLUCOSE URINE NEGATIVE (NEGATIVE)
[2019-03-05 09:26] LABS: BLOOD URINE LARGE (NEGATIVE); KETONE URINE TRACE mg/dL (NEGATIVE); PH URINE 6.5
[2019-03-05 09:27] LABS: NITRITE URINE POSITIVE (NEGATIVE); PROTEIN URINE 30 mg/dL (NEGATIVE)
[2019-03-05 09:28] LABS: LEUKOCYTES URINE LARGE (NEGATIVE)
[2019-03-05 09:31] LABS: URINE BACTERIA 2+ /HFP; URINE EPITHELIAL CELLS >10 /HPF (<10)
[2019-03-05 09:39] LABS: BASO# 0.06 X1000 (0.0-0.2); BASO% 0.4 % (0.0-0.8); HEMATOCRIT 37.2 % (37.0-47.0); HEMOGLOBIN 11.9 g/dL (12.0-16.0); IMM GRAN% 1.4 % (0.0-0.5); LYMPH% 12.1 % (20.5-51.1); MCH 28.3 PG (27-31); MCV 88.4 FL (81-99); MONO# 1.39 X1000 (0.11-0.59); MONO% 9.9 % (1.7-9.3); MPV 9.4 FL (7.4-10.4); NEUT# 9.98 X1000 (1.4-6.5); NEUT% 71.2 % (42.2-75.2); PLT 538 X1000 (130-400); RBC 4.21 XMIL (4.2-5.4); RDW 14.6 % (11.5-14.5); WBC 14.03 X1000 (4.8-10.8)
[2019-03-05 09:43] LABS: URINE CRYSTAL CA OXALATE PRESENT /HPF
[2019-03-05 10:06] LABS: AGAP 12; ALBUMIN 3.6 g/dL (3.5-5.0); ALKALINE PHOSPHATASE 88 U/L (32-104); BUN 10 mg/dL (8-22); CALCIUM 8.6 mg/dL (8.8-10.2); CHLORIDE 108 mmol/L (98-107); COSMO 277; CREATININE 0.8 mg/dL (0.5-0.9); ESTIMATED GFR > 60; GLUCOSE 99 mg/dL (70-104); GOT 12 U/L (10-30); GPT 9 U/L (10-36); POTASSIUM 3.3 mmol/L (3.5-5.1); SODIUM 139 mmol/L (136-145); TCO2 19 mmol/L (25-35); TOTAL PROTEIN 6.6 g/dL (6.3-8.3)
--- NOTE | 2019-03-05 12:46 | Diag Imaging Result Doc PS360 ---
EXAM: CT ABD/PELVIS W/IV CONT ONLY HISTORY: pain TECHNIQUE: CT abdomen and pelvis with intravenous contrast COMPARISON: 02/26/2019 FINDINGS: No calcified gallstones or adjacent inflammation. There is a tiny cyst within the liver. No change in the spleen, pancreas, or adrenal glands. No renal masses. No hydronephrosis. Prominent atherosclerosis with a small distal abdominal aortic aneurysm. This is unchanged. There is wall thickening to the colon. Mild adjacent inflammation in the sigmoid colon. There are scattered diverticula. No free air. No abscess. The uterus has been removed. Urinary bladder is not distended. IMPRESSION: Worsening colitis This exam was performed using automated exposure control, adjustment of mA or kV according to patient size, and/or use of iterative reconstruction technique. Electronically signed by Jordan 03/05/2019 12:44 PM
[2019-03-05] MEDS ORDERED: TYLENOL PO PRN (13:32)
[2019-03-05] MEDS ORDERED: ZOFRAN IV PRN (13:32)
[2019-03-05] MEDS: ZOSYN 3.375 GM in NS 50 ML IV SCH ×2 (14:35→21:25)
[2019-03-05] MEDS: NS 1,000 ML IV SCH (14:35)
[2019-03-05] MEDS: NEURONTIN PO SCH ×3 (16:07→22:27)
[2019-03-05] MEDS: FLAGYL 500 MG/NS 500 MG/100 ML IVPB IV SCH ×2 (16:08→22:28)
[2019-03-05] MEDS ORDERED: FLU VACCINE IM ONE (16:15)
[2019-03-05] MEDS ORDERED: PNEUMOVAX 23 IM ONE (16:15)
[2019-03-05] MEDS: POTASSIUM CHLORIDE 20 MEQ/SWI 20 MEQ/100 ML IVPB IV SCH ×2 (17:23→22:28)
--- NOTE | 2019-03-05 18:00 | PROVIDER DOCUMENTATION ---
This chart was entered by Coni Romero Scribe, acting as scribe for Julien Mcneil MD. HPI-Abdominal Pain/GI Problem - General Chief Complaint: Abdominal Pain Stated Complaint: STOMACH PAIN/CRAMPS Time Seen by Provider: 03/05/19 09:14 Source: patient Allergies/Adverse Reactions: Patient Allergies Allergy/AdvReac Type Severity Reaction Status Date / Time codeine Allergy pass out Verified 03/05/19 09:05 lisinopril Allergy Unknown Verified 03/05/19 09:05 Home Medications: Home Medication List Medication Instructions Recorded Confirmed Last Taken Type Aspirin 325 mg PO DAILY 09/15/18 03/05/19 09/15/18 History 325 Clopidogrel Bisulfate [Clopidogrel] 75 mg PO DAILY 09/15/18 03/05/19 09/15/18 History Levothyroxine [Synthroid] 50 mg PO DAILY 09/15/18 03/05/19 09/15/18 History Metoprolol Tartrate 25 mg PO BID 09/15/18 03/05/19 09/15/18 08:00 History ATORVAstatin [Lipitor] 80 mg PO DAILY 03/05/19 03/05/19 Unknown History Gabapentin 300 mg PO TID 03/05/19 03/05/19 Unknown History - History of Present Illness-ABD Nature of Presenting Problems: Patient is a 63 year old female who presents with LLQ and RLQ abdominal pain. States fever and diarrhea with abdominal pain. Reports being diagnosed by PCP with diverticulitis 3 weeks ago and was prescribed Levaquin and Flagyl. States being seen at [facility] and was diagnosed with colitis. Denies nausea, vomiting and blood in stool. Abdominal Pain Onset Location: reports: RLQ, LLQ Pain Radiation: reports: no radiation Quality of Pain: reports: cramping Severity in ED: reports: mild Onset/Duration: reports: other (3 weeks) Timing: reports: intermittent Activities at Onset: reports: light activity Associated Symptoms: reports: diarrhea, fever/chills (fever) Rectal Bleeding: reports: none Bruising or Bleeding Gums?: No Similar Symptoms Previously?: Yes Recently seen or treated by another doctor?: Yes Review of Systems - Adult - REVIEW OF SYSTEMS - ADULT Constitutional: reports: see HPI, fever. denies: chills, fatique Eyes: reports: no symptoms reported Ears, Nose, Mouth & Throat: reports: no symptoms reported Cardiovascular: reports: no symptoms reported Respiratory: reports: no symptoms reported Gastrointestinal: reports: see HPI, abdominal pain (LLQ and RLQ), diarrhea. denies: nausea, rectal bleeding, vomiting Genitourinary: reports: no symptoms reported Musculoskeletal: reports: no symptoms reported Integumentary: reports: no symptoms reported Neurological: reports: no symptoms reported Psychiatric: reports: no symptoms reported Endocrine: reports: no symptoms reported Hematologic/Lymphatic: reports: no symptoms reported Allergic/Immunologic: reports: no symptoms reported All Other Systems: Reviewed and Negative Past History - Adult - PAST MEDICAL HISTORY-ADULT Review of Records: reports: Old Records Reviewed, Nursing Assessment Review, Medications Reviewed, Social history reviewed & non-contributory. Major Childhood Illnesses: reports: denies history Cardiovascular: reports: HTN, hyperlipidemia Respiratory: reports: denies history Gastrointestinal: reports: colitis, other (diverticulitis) Obstetrical/Gynecological: reports: denies history Genitourinary: reports: denies history Musculoskeletal: reports: denies history Neurological: reports: denies history Psychiatric: reports: denies history Endocrine/Immune: reports: denies history Other Conditions: reports: denies history Additional History: mild bulge in distal abd aorta - PRIOR SURGERIES/PROCEDURES Surgical/Procedure History: reports: appendectomy, CABG, cholecystectomy - IMMUNIZATION STATUS Childhood Immunizations: See Nurse Assessment Flu Vaccine: See Nurse Assessment - FAMILY HISTORY Family History: reviewed, not pertinent - SOCIAL HISTORY Smoking: cigarettes (former) Substance Use: denies Physical Exam-General - PHYSICAL EXAM-ADULT Initial Vital Signs Reviewed: Yes - CONSTITUTIONAL General Appearance: alert, no apparent distress. negative: lethargic - HEAD, EARS, NOSE, MOUTH & THROAT HENMT: normocephalic/atraumatic, moist mucous membranes. negative: angioedema - RESPIRATORY Respiratory: chest non-tender, lungs clear, normal breath sounds. negative: rales - CARDIOVASCULAR Cardiovascular: normal peripheral pulses, regular rate, rhythm. negative: tachycardia - GASTROINTESTINAL (ABDOMEN) Abdominal Exam: normal bowel sounds, soft, tenderness (bilateral lower quadrants. LLQ worse than RLQ). negative: rigid - SKIN Integumentary: normal color, normal turgor, warm/dry. negative: diaphoresis - NEUROLOGIC Neurologic: grossly normal. negative: aphasia, facial droop - PSYCHIATRIC Psych/Mental Status: normal mood/affect, oriented x 3. negative: anxious Progress - PLAN OF CARE/RESULTS Progress/Plan/Lab Results: Vital Signs - 8 hr 03/05/19 08:50 Temperature 98.3 F Pulse Rate 69 Respiratory Rate 20 Blood Pressure 143/78 O2 Sat by Pulse Oximetry 97 Laboratory Results - last 24 hr 03/05/19 09:03 Urine Source CLEAN CATCH Urine Color YELLOW Urine Clarity SLIGHTLY CLOUDY A Urine pH 6.5 Ur Specific [place] 1.020 Urine Protein 30 A Urine Ketones TRACE A Urine Blood LARGE A Urine Nitrite POSITIVE A Urine Bilirubin NEGATIVE Urine Urobilinogen 0.0 L Urine WBC LARGE A Urine Glucose NEGATIVE Orders Category Date Time Status Saline Loc NOW Care 03/05/19 09:02 Active CBC WITH DIFF [HEME] Stat Lab 03/05/19 09:26 Results COMPREHENSIVE METABOLIC PANEL [CHEM] Stat Lab 03/05/19 09:26 Received Stool [C DIFF TOXIN PL] Stat Lab 03/05/19 09:30 Uncollected URINE CULTURE [RM] Routine Lab 03/05/19 09:28 Ordered Result Diagrams: 03/05/19 09:26 03/05/19 09:26 - CT/MRI 1 CT Study: Abdomen, Pelvis Impression: See EMR Report (EXAM: CT ABD/PELVIS W/IV CONT ONLY HISTORY: pain TECHNIQUE: CT abdomen and pelvis with intravenous contrast COMPARISON: 02/26/2019 FINDINGS: No calcified gallstones or adjacent inflammation. There is a tiny cyst within the liver. No change in the spleen, pancreas, or adrenal glands. No renal masses. No hydronephrosis. Prominent atherosclerosis with a small distal abdominal aortic aneurysm. This is unchanged. There is wall thickening to the colon. Mild adjacent inflammation in the sigmoid colon. There are scattered diverticula. No free air. No abscess. The uterus has been removed. Urinary bladder is not distended. IMPRESSION: Worsening colitis This exam was performed using automated exposure control, adjustment of mA or kV according to patient size, and/or use of iterative reconstruction technique. Electronically signed by Jordan 03/05/2019 12:44 PM 03/05/19 1244 Interpreting Physician: Jordan Mon MD Dictated Date/Time: 03/05/19 1241 cc: Julien Mcneil MD; Breana Mckeon MD) - CONSULTS/PCP/HOSPITALIST Notification #1 *Consult/PCP/Hospitalist*: Dr. Wilkinson Time Discussed: 13:17 Reason/Comments: Dr. Mcneil consulted with Dr. Wilkinson about patient Consult Disposition: Will see in ED, Admit Departure - Departure Date of Disposition Decision: 03/05/19 Time of Disposition Decision: 13:21 DIAGNOSIS: Colitis Disposition: ADMITTED INPATIENT 09 Certified Medical Emergency: Emergent Condition: Stable Referrals and Follow-Ups: Breana Mckeon MD [Primary Care Provider] - - Critical Care Note This patient required my direct & personal management of CC.: No Attestation - Physician/ YOCASTA Attestation The physician spent face to face time with patient:: Yes Advanced Practice Provider documentation review:: Supervising physician onsite and consulted in the evaluation and care of this patient. The physician did have a face to face encounter with the patient. This chart was documented by the indicated scribe, (Coni Romero Scribe) and accurately reflects the services I performed and decisions made by me, Julien Mcneil MD, as attested by the provider's signature.
[2019-03-05] MEDS: LOPRESSOR PO SCH (20:18)
--- NOTE | 2019-03-05 21:41 | HISTORY AND PHYSICAL ---
PRIMARY CARE PHYSICIAN: Dr. Mckeon. CHIEF COMPLAINT: Of left and right lower quadrant abdominal pain with some subjective fever and diarrhea. HISTORY OF PRESENTING ILLNESS: This is a 63-year-old female who presents to [facility] ER with complaints of left lower and right lower quadrant abdominal pain, a subjective fever and diarrhea, states about 3 weeks ago was diagnosed with diverticulitis by her primary care physician. Took Levaquin and Flagyl, got better but then was seen at [facility] ER on 02/26/2019 and diagnosed with a colitis and just really has not felt good since then and it has progressively worsened so today she comes into the emergency room and had a white blood cell count of 14.03, her stool for C difficile was negative. Her urinalysis showed positive nitrites, large white blood cells, 2+ bacteria, potassium is mildly low at 3.3. We did do a CT of the abdomen and pelvis that showed worsening colitis so she will be admitted for further evaluation and treatment. PAST MEDICAL HISTORY: Hypertension, hyperlipidemia, colitis, diverticulitis, hypothyroidism. PAST SURGICAL HISTORY: Of an appendectomy, CABG and cholecystectomy. FAMILY HISTORY: Reviewed and noncontributory. SOCIAL HISTORY: She currently lives with family, is a former smoker and denied any alcohol or illicit drug use. ALLERGIES: Codeine and lisinopril. HOME MEDICATIONS: She takes aspirin 325 mg p.o. daily, atorvastatin 80 mg p.o. daily, Plavix 75 mg p.o. daily, gabapentin 300 mg p.o. t.i.d., Synthroid 50 mcg p.o. daily and metoprolol 25 mg p.o. b.i.d. REVIEW OF SYSTEMS: She has had a subjective fever, some mild chills. Denied any blurred vision, dizziness, chest pain, coughing, shortness of breath. She had right and left lower quadrant abdominal pain, diarrhea. Denied any constipation or burning or hurting with urination. PHYSICAL EXAMINATION: On arrival she had a temperature of 98.3 degrees, pulse 69, respirations 20, blood pressure 143/78, saturating 97% on room air. GENERAL: This is a 63-year-old female who is lying in the bed and answers questions appropriately. HEENT: Normocephalic, atraumatic. Normal ENT inspection. Oropharynx and nares are clear. Pupils are equal, round, and reactive to light and accommodation. Extraocular movements are intact. NECK: Normal inspection, normal range of motion. LUNGS: Clear to auscultation bilaterally. Equal lung expansion, chest wall movement. HEART: Regular rate and rhythm. No murmurs, rubs, or gallops. ABDOMEN: Soft. There is some tenderness to palpation to the right and left lower quadrants. Bowel sounds were present x4 quadrants. MUSCULOSKELETAL: She had 5/5 strength x4 extremities. NEUROLOGICAL: The cranial nerves 2-12 appear grossly intact. ASSESSMENT: 1. Colitis with failed outpatient treatment. 2. Leukocytosis secondary to #1. 3. Urinary tract infection. 4. Mild hypokalemia. PLAN: She will be admitted to the medical unit. We are going to hold her n.p.o. at this time, place her on Flagyl 500 mg IV q.6 hours, Zosyn 3.375 g IV q.6, normal saline at 75 mL an hour, give her potassium 20 mEq IV x1 and continue home medications as previously identified. Blood culture and urine cultures are pending. Will do a TSH, magnesium, CBC and CMP in the a.m. and further orders after seen by attending. Dictated by JAMMIE Rudd for Javier Wilkinson MD cc: MD Javier Sampson MD
--- NOTE | 2019-03-06 00:12 | HISTORY AND PHYSICAL ---
HISTORY OF PRESENT ILLNESS/PLAN: Patient seen and examined by myself. Full note dictated and discussed with nurse practitioner. Patient presented to the hospital with abdominal pain, cramping, nausea. Denies any blood in her emesis or blood in her stool. Denies any fevers or chills. She was recently diagnosed with colitis from the ER. Unfortunately, she has failed outpatient treatment and has continued to worsen. She has been on antibiotics for the past 5 days. We are going to admit her to the hospital, keep her NPO, except ice chips and sips of liquid. Start her on IV fluids, pain control, and antibiotics, and will follow. Please see full note. cc: Javier Wilkinson MD
[2019-03-06] MEDS: ZOSYN 3.375 GM in NS 50 ML IV SCH ×4 (03:51→22:25)
[2019-03-06] MEDS: FLAGYL 500 MG/NS 500 MG/100 ML IVPB IV SCH ×3 (04:57→16:32)
[2019-03-06] MEDS: NS 1,000 ML IV SCH ×2 (04:58→22:26)
[2019-03-06 05:22] LABS: HEMATOCRIT 33.9 % (37.0-47.0); HEMOGLOBIN 10.5 g/dL (12.0-16.0); MCH 27.7 PG (27-31); MCV 89.4 FL (81-99); MPV 9.1 FL (7.4-10.4); RBC 3.79 XMIL (4.2-5.4); RDW 14.7 % (11.5-14.5); WBC 12.67 X1000 (4.8-10.8)
[2019-03-06 05:54] LABS: AGAP 14; ALKALINE PHOSPHATASE 73 U/L (32-104); BUN 12 mg/dL (8-22); CALCIUM 8.1 mg/dL (8.8-10.2); CHLORIDE 109 mmol/L (98-107); COSMO 272; CREATININE 0.8 mg/dL (0.5-0.9); ESTIMATED GFR > 60; GLUCOSE 72 mg/dL (70-104); GOT 10 U/L (10-30); GPT 7 U/L (10-36); MAGNESIUM 1.9 mg/dL (1.5-2.7); POTASSIUM 3.8 mmol/L (3.5-5.1); SODIUM 137 mmol/L (136-145); TCO2 15 mmol/L (25-35); TOTAL PROTEIN 5.7 g/dL (6.3-8.3)
[2019-03-06] MEDS: SYNTHROID PO SCH (06:57)
[2019-03-06] MEDS: PLAVIX PO SCH (10:45)
[2019-03-06] MEDS: NEURONTIN PO SCH ×3 (10:45→22:25)
[2019-03-06] MEDS: ASPIRIN PO SCH (10:45)
[2019-03-06] MEDS: LOPRESSOR PO SCH ×2 (10:45→22:24)
[2019-03-06 14:00] LABS: OCCULT BLOOD 1 NEGATIVE (NEGATIVE)
[2019-03-06] MEDS ORDERED: LIPITOR PO SCH (21:00)
--- NOTE | 2019-03-07 03:54 | PROGRESS NOTE ---
DATE: 03/06/2019 SUBJECTIVE: She feels a little bit better. Cramping is better. OBJECTIVE: Vital signs: Blood pressure is 130/56, heart rate 63, respiratory rate 20, temperature 97.7 degrees, 99% on room air. Cardiovascular: Regular rate and rhythm. Pulmonary: Bilateral breath sounds clear to auscultation. Gastrointestinal: Soft. She has a little bit of distention, but there is no tenderness. Bowel sounds are positive. LABORATORY DATA: Her white count is 12, hemoglobin and hematocrit 10 and 33, platelets 520,000. Bicarb is 15. Albumin is 3. She may have a UTI as well. PROBLEM LIST: 1. Worsening colitis. Clinically, she is doing better. I am going to advance her diet. We will continue her antibiotics. She is on Zosyn and Flagyl, which I am not quite sure double covering anaerobes is going to make much difference. Right now, would leave the Flagyl until we know her C diff testing is negative, which it is. I am just going to leave her on the Zosyn. This may be seen now inflammatory, but we will continue to follow. 2. Hypothyroidism. We will continue to follow that as well. Her TSH is normal. cc: Manjeet Florian MD
[2019-03-07] MEDS: ZOSYN 3.375 GM in NS 50 ML IV SCH ×2 (04:08→10:27)
[2019-03-07 05:21] VITALS: BP 133/53
[2019-03-07 06:01] LABS: BASO# 0.04 X1000 (0.0-0.2); BASO% 0.4 % (0.0-0.8); EOS# 0.61 X1000 (0.0-0.7); EOS% 6.6 % (0.0-10.0); HEMATOCRIT 33.2 % (37.0-47.0); HEMOGLOBIN 10.5 g/dL (12.0-16.0); IMM GRAN# 0.11 X1000 (0.0-0.04); IMM GRAN% 1.2 % (0.0-0.5); LYMPH# 1.54 X1000 (1.2-3.4); LYMPH% 16.7 % (20.5-51.1); MCHC 31.6 g/dL (33-37); MCV 88.5 FL (81-99); MONO# 0.97 X1000 (0.11-0.59); MONO% 10.5 % (1.7-9.3); MPV 9.1 FL (7.4-10.4); NEUT# 5.94 X1000 (1.4-6.5); NEUT% 64.6 % (42.2-75.2); PLT 561 X1000 (130-400); RBC 3.75 XMIL (4.2-5.4); RDW 14.4 % (11.5-14.5); WBC 9.21 X1000 (4.8-10.8)
[2019-03-07] MEDS: SYNTHROID PO SCH (06:32)
[2019-03-07 06:38] LABS: AGAP 11; BUN 10 mg/dL (8-22); CALCIUM 7.9 mg/dL (8.8-10.2); CHLORIDE 111 mmol/L (98-107); COSMO 277; CREATININE 0.6 mg/dL (0.5-0.9); ESTIMATED GFR > 60; GLUCOSE 139 mg/dL (70-104); POTASSIUM 3.5 mmol/L (3.5-5.1); SODIUM 138 mmol/L (136-145); TCO2 16 mmol/L (25-35)
[2019-03-07] MEDS: LOPRESSOR PO SCH (10:27)
[2019-03-07] MEDS: PLAVIX PO SCH (10:27)
[2019-03-07] MEDS: NEURONTIN PO SCH (10:28)
[2019-03-07] MEDS: ASPIRIN PO SCH (10:28)
--- NOTE | 2019-03-07 17:05 | DISCHARGE SUMMARY ---
ADMISSION DATE: 03/05/2019 DISCHARGE DATE: 03/07/2019 DISCHARGE DIAGNOSES: 1. Colitis, worsening. 2. Hypothyroidism. PROCEDURES: None. This is a 63-year-old female. She had been diagnosed with diverticulitis, was placed on Levaquin and Flagyl, and then she was seen back with colitis and got worse. White count was normal. C difficile, all that was normal. She was placed on Zosyn and Flagyl. She slowly improved. Her diarrhea improved. All of her stool studies this time were also negative. Clinically she improved. It is not clear if this is truly not inflammatory colitis, so she will most likely need an endoscopy. I am going to refer her to GI doctor as an outpatient. In any case, we will continue to monitor closely. Anticipate discharge soon. DISCHARGE MEDICATIONS: As follows: 1. Aspirin 325 daily. 2. Plavix 75 daily. 3. Gabapentin 300 t.i.d. 4. Lipitor 80 daily. 5. Metoprolol 25 b.i.d. 6. Synthroid 50 daily. 7. Augmentin 875 q.12. 8. Lactinex. DISCHARGE CONDITION: Stable. cc: MD Breana Slater MD Khurshid Yousuf, MD MTDD
== END 2019-03-07 15:38 | disposition home or self-care (01) | DRG 392 ==
LOC: P.ED 08:46 → SUATTDRO 14:18 → P.MEDSURG 14:18
PROVIDERS: ATTEND Internal Medicine